=== PATIENT | female | born 1970 | race Caucasian/White ===

== ENCOUNTER 2019-09-27 00:30 | Emergency (ER) | payer OTHER, SELFPAY ==
[~2019-09-27] VITALS: Ht 172.7 cm; Wt 90.0 kg
[2019-09-27] MEDS ORDERED: ONDANSETRON 4MG/2ML VIAL IV ONE (00:45)
[2019-09-27] MEDS: MORPHINE 4 MG/ML 1ML VIAL/SYRINGE (J2270) IV PRN ×2 (00:48→01:05)
[2019-09-27] MEDS ORDERED: PERC5TAB12 PO (02:24)
[2019-09-27] MEDS ORDERED: OXYCODONE/APAP 5MG/325MG(BULK FOR ED) 1 TABLET PO ONE (02:30)
[2019-09-27 02:36] VITALS: BP 122/79
--- NOTE | 2019-09-27 08:32 | REP ---
Right humerus: Two views. History: Fracture. Findings: There is an obliquely oriented fracture of the proximal humeral diaphysis with only 2-3 mm of medial displacement. Slight comminution. Glenohumeral and acromioclavicular joints are normally aligned. No distal humeral fracture. Impression: Proximal humeral fracture. Electronically Signed by Tino Champagne MD 09/27/2019 08:24 A
--- NOTE | 2019-09-27 08:33 | REP ---
Right shoulder: Two views. History: Injury in a fall. Findings: AP and tangential scapular Y views of the right shoulder demonstrate normal alignment of the glenohumeral and acromioclavicular fracture. There is an obliquely oriented somewhat comminuted slightly impacted fracture of the surgical neck of the right proximal humerus. No scapular fracture or clavicle fracture is seen. Impression: Proximal humeral fracture. Electronically Signed by Tino Champagne MD 09/27/2019 08:24 A
== END 2019-09-27 02:46 | disposition home or self-care (01) ==
LOC: M ED 00:30
DX: S42.201A Unspecified fracture of upper end of right humerus, initial encounter for closed fracture (principal); W01.0XXA Fall on same level from slipping, tripping and stumbling without subsequent striking against object, initial encounter; Y92.9 Unspecified place or not applicable; Y93.9 Activity, unspecified; Y99.9 Unspecified external cause status
CPT/HCPCS: 73030; 73060; 99284; J2270; J2405